=== PATIENT | male | born 1980 | race Caucasian/White ===

== ENCOUNTER 2017-11-08 21:59 | Emergency (ER) | payer BC ==
[2017-11-08] MEDS ORDERED: Iopamidol 612 MG/ML 100 ML Bottle IVPUSH ONE (23:00)
[2017-11-08] MEDS ORDERED: fentaNYL 100 MCG/2 ML SDV IVPUSH ONE (23:16)
--- NOTE | 2017-11-08 23:16 | EDM.PDOC ---
ED HPI GENERAL MEDICAL PROBLEM - General Chief Complaint: Abdominal Pain Stated Complaint: Confusion, abdominal pain, colon CA with mets Time Seen by Provider: 11/08/17 22:20 Source of Information: Reports: Patient, Family, Old Records, RN, RN Notes Reviewed History Limitations: Reports: No Limitations - History of Present Illness INITIAL COMMENTS - FREE TEXT/NARRATIVE: Patient is brought to the ED at [facility] for AMS, confusion, and worsening abdominal pain. Patient was diagnosed with Colon CA July 2017. He has been under Oncology service since that time. He was originally started on Folfox and Avastin. He did not fair very well with this, so he recently started on Vectibix. His first treatment of the Vectibix was one week ago. His SO states over that past couple of days, he started having more confusion and not really making any sense. His appetite has been less due to early satiety. His abdomen has been more distended. He complains of worsening pain, especially along the RLQ. SO states his memory seems to be worse. He has a new foot rash on the dorsum of both feet, extending up the posterior legs. He states his BM's seem to be normal. No UTI problems. He is scheduled for his next infusion of Vectibix this Thursday. He has been sitting in a hot tub lately for his pain. The rash started after hot tub use. His liver enzymes have remained consistently elevated. His SO says his last set were actually better than the previous. SO thinks his abdomen seems more distended. Duration: Chronic Location: Reports: Abdomen Quality: Reports: Sharp, Stabbing Severity: Moderate Improves with: Reports: Rest Worsens with: Reports: Movement Context: Reports: Other (Colon CA with liver mets) Associated Symptoms: Reports: No Other Symptoms LUQ, LLQ abdomen Pain Score (Numeric/FACES): 7 - Related Data Allergies Allergy/AdvReac Type Severity Reaction Status Date / Time No Known Drug Allergies Allergy Other Verified 11/08/17 22:31 Home Meds: Home Meds Morphine [MS Contin] 15 mg PO BID 11/08/17 [History] Prochlorperazine Maleate [Compazine] 11/08/17 [History] oxyCODONE 5 mg PO TID 11/08/17 [History] Past Medical History Respiratory History: Reports: Other (See Below) Other Respiratory History: pulmonary nodule, left posterior lung base, lactic acidosis Gastrointestinal History: Reports: Hepatitis, Other (See Below) Other Gastrointestinal History: ascities, obstructive hyperbilirubinemia, colon CA with mets to liver Psychiatric History: Reports: Other (See Below) Other Psychiatric History: hx of alcohol use disorder, severe, in full remission last drink 12/24/2010 Hematologic History: Reports: Other (See Below) Other Hematologic History: microcytic anemia Immunologic History: Reports: Other (See Below) Other Immunologic History: leukocytosis Oncologic (Cancer) History: Reports: Colon, Liver, Other (See Below) Other Oncologic History: Colon primary with mets to liver. - Past Surgical History GI Surgical History: Reports: Appendectomy, Colonoscopy ED ROS GENERAL - Review of Systems Review Of Systems: See Below Constitutional: Reports: Weakness, Fatigue. Denies: Fever, Chills Respiratory: Denies: Shortness of Breath, Cough Cardiovascular: Denies: Chest Pain, Palpitations GI/Abdominal: Reports: Abdominal Pain, Decreased Appetite. Denies: Black Stool , Bloody Stool, Diarrhea, Nausea, Vomiting Skin: Reports: Rash Neurological: Reports: Confusion. Denies: Dizziness, Headache ED EXAM, GI/ABD - Physical Exam Exam: See Below Exam Limited By: No Limitations General Appearance: Alert, Thin, Cachetic Respiratory/Chest: No Respiratory Distress, Lungs Clear, Normal Breath Sounds Cardiovascular: Normal Peripheral Pulses, Regular Rate, Rhythm GI/Abdominal Exam: Distended, Guarding, Tender, Abnormal Bowel Sounds, Hepatomegaly Neurological: Alert Skin Exam: Warm, Dry, Intact, Jaundice, Rash (dorsum of both beet and posterior lower extremities) Course - Vital Signs Last Recorded V/S: Last Vital Signs Temp 36.9 C 11/08/17 22:05 Pulse 100 11/08/17 22:05 Resp 20 11/08/17 22:05 BP 120/73 11/08/17 22:05 Pulse Ox 100 11/08/17 22:05 - Orders/Labs/Meds Orders: Active Orders 24 hr Category Date Time Status Implanted Port Access [RC] ONETIME Care 11/08/17 22:46 Active Chest Abdomen Pelvis w Cont [CT] Stat Exams 11/08/17 22:49 Stop Req Chest Abdomen Pelvis w wo Cont [CT] Stat Exams 11/08/17 23:00 Ordered Head wo Cont [CT] Stat Exams 09/16/18 22:48 Taken Labs: Laboratory Tests 11/08/17 11/08/17 11/08/17 Range/Units 23:02 23:02 23:02 WBC 10.8 H (4.0-10.0) x10^3/uL RBC 2.87 L (4.5-6.0) x10^6/uL Hgb 8.8 L (14.0-18.0) g/dL Hct 26.5 L (40.0-52.0) % MCV 92.3 (78.0-93.0) fL MCH 30.7 (26.0-32.0) pg MCHC 33.2 (32.0-36.0) g/dL RDW Coeff of [place] 30.9 H (10.0-15.0) % Plt Count 368 (130-400) x10^3/uL Add Manual Diff Yes Neutrophils % (Manual) 87 H (50-80) % Band Neutrophils % 2 (0-6) % Lymphocytes % (Manual) 2 L (25-50) % Monocytes % (Manual) 4 (2-11) % Eosinophils % (Manual) 4 (0-4) % Blast Cells % 1 H (0) % Platelet Estimate Adequate Hypochromasia Marked Anisocytosis 3+ marked H Macrocytosis 1+ slight H Spherocytes 1+ slight H Target Cells Moderate PT 17.2 H (9.6-11.4) SEC INR 1.7 L (2.0-3.5) Sodium 133 L (136-145) mmol/L Potassium 4.1 (3.5-5.1) mmol/L Chloride 97 L (98-107) mmol/L Carbon Dioxide 26 (21-32) mmol/L Anion Gap 14.1 (10-20) mmol/L BUN 17 (7-18) mg/dL Creatinine 0.7 (0.70-1.30) mg/dL Est Cr Clr Drug Dosing 132.30 mL/min Estimated GFR (MDRD) > 60 Glucose 89 (74-106) mg/dL Lactic Acid (0.4-2.0) mmol/L Calcium 9.2 (8.5-10.1) mg/dL Corrected Calcium 10.64 H (8.5-10.1) mg/dL Magnesium 1.7 L (1.8-2.4) mg/dL Total Bilirubin 10.3 H (0.2-1.0) mg/dL Direct Bilirubin 8.27 H (0.00-0.20) mg/dL AST 318 H (15-37) U/L ALT 41 (16-63) U/L Alkaline Phosphatase 416 H (46-116) U/L Total Protein 7.9 (6.4-8.2) g/dL Albumin 2.2 L (3.4-5.0) g/dL Globulin 5.7 Albumin/Globulin Ratio 0.39 Urine Color (YELLOW) Urine Appearance (CLEAR) Urine pH (5.0-8.0) Ur Specific [place] Urine Protein (NEGATIVE) mg/dL Urine Glucose (UA) (NEGATIVE) mg/dL Urine Ketones (NEGATIVE) mg/dL Urine Occult Blood (NEGATIVE) Urine Nitrite (NEGATIVE) Urine Bilirubin (NEGATIVE) Urine Urobilinogen (0.2) EU/dL Ur Leukocyte Esterase (NEGATIVE) Urine RBC (NOT SEEN) /HPF Urine WBC (NOT SEEN) /HPF Ur Squamous Epith Cells (NEGATIVE) /HPF Urine Bacteria (NEGATIVE) /HPF Hyaline Casts (NEGATIVE) /HPF Urine Mucus (NEGATIVE) /LPF 11/08/17 11/08/17 Range/Units 23:02 23:45 WBC (4.0-10.0) x10^3/uL RBC (4.5-6.0) x10^6/uL Hgb (14.0-18.0) g/dL Hct (40.0-52.0) % MCV (78.0-93.0) fL MCH (26.0-32.0) pg MCHC (32.0-36.0) g/dL RDW Coeff of [place] (10.0-15.0) % Plt Count (130-400) x10^3/uL Add Manual Diff Neutrophils % (Manual) (50-80) % Band Neutrophils % (0-6) % Lymphocytes % (Manual) (25-50) % Monocytes % (Manual) (2-11) % Eosinophils % (Manual) (0-4) % Blast Cells % (0) % Platelet Estimate Hypochromasia Anisocytosis Macrocytosis Spherocytes Target Cells PT (9.6-11.4) SEC INR (2.0-3.5) Sodium (136-145) mmol/L Potassium (3.5-5.1) mmol/L Chloride (98-107) mmol/L Carbon Dioxide (21-32) mmol/L Anion Gap (10-20) mmol/L BUN (7-18) mg/dL Creatinine (0.70-1.30) mg/dL Est Cr Clr Drug Dosing mL/min Estimated GFR (MDRD) Glucose (74-106) mg/dL Lactic Acid 3.9 H* (0.4-2.0) mmol/L Calcium (8.5-10.1) mg/dL Corrected Calcium (8.5-10.1) mg/dL Magnesium (1.8-2.4) mg/dL Total Bilirubin (0.2-1.0) mg/dL Direct Bilirubin (0.00-0.20) mg/dL AST (15-37) U/L ALT (16-63) U/L Alkaline Phosphatase (46-116) U/L Total Protein (6.4-8.2) g/dL Albumin (3.4-5.0) g/dL Globulin Albumin/Globulin Ratio Urine Color Reyna H (YELLOW) Urine Appearance Slightly cloudy H (CLEAR) Urine pH 5.5 (5.0-8.0) Ur Specific [place] 1.010 Urine Protein Trace H (NEGATIVE) mg/dL Urine Glucose (UA) Negative (NEGATIVE) mg/dL Urine Ketones Negative (NEGATIVE) mg/dL Urine Occult Blood Negative (NEGATIVE) Urine Nitrite Negative (NEGATIVE) Urine Bilirubin Large H (NEGATIVE) Urine Urobilinogen 1.0 (0.2) EU/dL Ur Leukocyte Esterase Negative (NEGATIVE) Urine RBC Not seen (NOT SEEN) /HPF Urine WBC 0-5 (NOT SEEN) /HPF Ur Squamous Epith Cells Not seen (NEGATIVE) /HPF Urine Bacteria Rare (NEGATIVE) /HPF Hyaline Casts Few H (NEGATIVE) /HPF Urine Mucus Few H (NEGATIVE) /LPF Meds: Medications Discontinued Medications Generic Name Dose Route Start Last Admin Trade Name Freq PRN Reason Stop Dose Admin Fentanyl 50 mcg 11/08/17 23:16 11/08/17 23:25 Sublimaze IVPUSH 11/08/17 23:17 50 mcg ONETIME ONE Administration Iopamidol 100 ml 11/08/17 23:00 11/08/17 23:25 Isovue-300 (61%) IVPUSH 11/08/17 23:01 100 ml ONETIME ONE Administration - Radiology Interpretation Free Text/Narrative:: CT Head: Normal unenhanced CT scan of the brain CT Chest/Abd/Pelvis w/wo contrast: See scanned report CT Results Date: 11/09/17 CT Results Time: 00:20 Departure - Departure Time of Disposition: 00:47 Disposition: Home, Self-Care 01 Condition: Poor Clinical Impression: Malignant neoplasm of transverse colon, Adenocarcinoma of colon metastatic to liver, Hepatitis Iron deficiency anemia Qualifiers: Iron deficiency anemia type: unspecified iron deficiency Qualified Code(s): D50.9 - Iron deficiency anemia, unspecified Abdominal pain Qualifiers: Abdominal location: right lower quadrant Qualified Code(s): R10.31 - Right lower quadrant pain Malnutrition Qualifiers: Malnutrition type: protein-calorie malnutrition Protein-calorie malnutrition severity: moderate Qualified Code(s): E44.0 - Moderate protein-calorie malnutrition - Discharge Information *PRESCRIPTION DRUG MONITORING PROGRAM REVIEWED*: Not Applicable *COPY OF PRESCRIPTION DRUG MONITORING REPORT IN PATIENT HANNAH: Not Applicable Referrals: Christiano Rodriguez MD [Primary Care Provider] - Harjit Garcia MD [Ordering Only Provider] - Forms: ED Department Discharge Additional Instructions: 1. Stay well hydrated and rest 2. Increase protein intake 3. Continue same medication at home 4. Keep appointment with Oncology this Thursday 5. Call us with any questions or concerns - Problem List Review Problem List Initiated/Reviewed/Updated: Yes - My Orders Last 24 Hours: My Active Orders 11/08/17 22:46 Implanted Port Access [RC] ONETIME 11/08/17 22:48 Head wo Cont [CT] Stat 11/08/17 22:49 Chest Abdomen Pelvis w Cont [CT] Stat 11/08/17 23:00 Chest Abdomen Pelvis w wo Cont [CT] Stat - Assessment/Plan Last 24 Hours: My Active Orders 11/08/17 22:46 Implanted Port Access [RC] ONETIME 11/08/17 22:48 Head wo Cont [CT] Stat 11/08/17 22:49 Chest Abdomen Pelvis w Cont [CT] Stat 11/08/17 23:00 Chest Abdomen Pelvis w wo Cont [CT] Stat Assessment:: Adenocarcinoma of the Colon with mets to liver Acute on Chronic abdominal pain Acute confusion ROMMEL Hepatitis Malnutrition Plan: Thoroughly and extensively discussed labs and CT scan with patient and family at bedside. All questions answered. Recommend increasing protein intake. Discussed results with Onc this Thursday at next appointment. Family appreciative of information.
[2017-11-08 23:43] LABS: CHLORIDE,CL 97 mmol/L (98-107); SODIUM,NA 133 mmol/L (136-145)
[2017-11-08 23:44] LABS: ANION GAP 14.1 mmol/L (10-20)
== END 2017-11-09 01:00 | disposition home or self-care (01) ==
LOC: VM.ED 21:59
DX: C18.4 Malignant neoplasm of transverse colon (principal); C78.7 Secondary malignant neoplasm of liver and intrahepatic bile duct; D50.9 Iron deficiency anemia, unspecified; K75.9 Inflammatory liver disease, unspecified; E44.0 Moderate protein-calorie malnutrition; Z79.899 Other long term (current) drug therapy
CPT/HCPCS: 36415; 70450; 71270; 74178; 80053; 81001; 82248; 83605; 83735; 85025; 85610; 96374; 99285; J3010; Q9967